=== PATIENT | female | born 1990 | race African-American/Black ===

== ENCOUNTER 2018-12-06 15:00 | Emergency (ER) | payer MEDICAID ==
[~2018-12-06] VITALS: Ht 157.5 cm; Wt 112.5 kg
[~2018-12-06 15:00] MED LIST: NOHOMEMEDICATIONS; NORCO 5-325 TA1 EACH PO; PHENERGAN 25 MG25 M1 PO; ZANTAC 7575 MG PO; ZOFRAN 4 MG ORAL4 M1 DIS
[2018-12-06 15:40] LABS: BASOPHILS 0.5 % (0.0-2.0); EOSINOPHILS 1.9 % (0.0-3.0); HEMATOCRIT 35.6 % (37.0-47.0); HEMOGLOBIN 11.4 gm/dL (12.0-15.0); LYMPHOCYTES 22.9 % (24.0-44.0); MCH 24.1 pg (26.0-34.0); MCHC 31.9 g/dL (28.0-37.0); MCV 75.5 fL (80.0-100.0); MONOCYTES 8.2 % (1.0-8.0); PLATELET COUNT 284 thou/uL (150-400); POLYS 66.5 % (36.0-66.0); RBC 4.71 mil/uL (4.20-5.00); RDW 16.3 % (10.5-14.5)
[2018-12-06 15:41] LABS: URINE BILIRUBIN NEGATIVE (Negative); URINE BLOOD NEGATIVE (Negative); URINE CLARITY CLEAR; URINE COLOR YELLOW; URINE GLUCOSE-RANDOM* NEGATIVE (Negative); URINE KETONES NEGATIVE (Negative); URINE LEUKOCYTES-REFLEX NEGATIVE (Negative); URINE NITRITE-REFLEX NEGATIVE (Negative); URINE PROTEIN (DIPSTICK) NEGATIVE (Negative); URINE SPECIFIC GRAVITY >= 1.030 (1.005-1.035); URINE UROBILINOGEN 0.2 E.U./dl (0.2-1.0)
[2018-12-06 15:53] LABS: CALCIUM 9.5 mg/dL (8.5-10.1); CREATININE 0.8 mg/dL (0.6-1.0)
[2018-12-06 15:59] LABS: ALBUMIN 3.4 g/dL (3.4-5.0); TOTAL BILIRUBIN 0.3 mg/dL (<0.1-1.0); TOTAL PROTEIN 7.8 g/dL (6.4-8.2)
[2018-12-06] MEDS ORDERED: PHENERGAN 25 MG25 M1 PO (16:39)
[2018-12-06] MEDS ORDERED: CIPRO500 MG PO (16:39)
[2018-12-06 16:45] VITALS: BP 134/79
== END 2018-12-06 16:45 | disposition home or self-care (01) ==
LOC: ER 15:00
PROVIDERS: Physician Assistant
DX: R11.2 Nausea with vomiting, unspecified (principal); R19.7 Diarrhea, unspecified; Z98.890 Other specified postprocedural states

== ENCOUNTER 2021-08-28 09:17 | Emergency (ER) | payer OTHER ==
[~2021-08-28] VITALS: Ht 157.5 cm; Wt 113.4 kg
[~2021-08-28 09:17] MED LIST changes: +CIPRO500 MG PO
[2021-08-28 09:26] VITALS: BP 129/84
[2021-08-28] MEDS ORDERED: PROAIR HFA8.5 GM INH (09:58)
[2021-08-28] MEDS ORDERED: TESSALON PERLE100 MG PO (09:58)
== END 2021-08-28 10:25 | disposition home or self-care (01) ==
LOC: ER 09:17
DX: R05.9 Cough, unspecified (principal); J45.909 Unspecified asthma, uncomplicated